=== PATIENT | female | born 1995 | race Hispanic/Latino ===

== ENCOUNTER 2021-09-08 07:24 | Emergency (ER) | payer SELFPAY ==
[~2021-09-08] VITALS: Ht 170.2 cm; Wt 100.0 kg
[2021-09-08 08:05] VITALS: BP 140/85
== END 2021-09-08 08:59 | disposition home or self-care (01) | DRG 179 ==
LOC: ED 07:24
DX: U07.1 COVID-19 (principal); R52 Pain, unspecified; J02.9 Acute pharyngitis, unspecified; R05.9 Cough, unspecified